=== PATIENT | male | born 1950 | race Caucasian/White ===

== ENCOUNTER 2017-04-10 09:56 | Day surgery (SDC) | payer MEDICARE, OTHER ==
[2017-04-10] MEDS ORDERED: LACTATED RINGERS 1,000 ML IV ONE (10:15)
[2017-04-10] MEDS ORDERED: fentaNYL 100 MCG/2 ML VIAL IVP ONE (10:50)
[2017-04-10] MEDS ORDERED: MIDAZOLAM 2 MG/2 ML VIAL IVP ONE (10:50)
[2017-04-10] MEDS ORDERED: BENZOCAINE/TETRACAINE/BUTAMBEN SPRAY 56 GM TOP ONE (10:59)
[2017-04-10] MEDS ORDERED: BENZOCAINE/TETRACAINE/BUTAMBEN SPRAY 56 GM ONE (11:05)
[2017-04-10 12:19] VITALS: BP 116/61
== END 2017-04-10 09:57 | disposition home or self-care (01) ==
LOC: SDS 09:56
PROVIDERS: ATTEND Surgery
PROC: 0DJD8ZZ Inspection of Lower Intestinal Tract, Via Natural or Artificial Opening Endoscopic (ICD-10-PCS; 2017-04-10)
PROC: 0DB48ZX Excision of Esophagogastric Junction, Via Natural or Artificial Opening Endoscopic, Diagnostic (ICD-10-PCS; principal; 2017-04-10 12:00)
PROC: 0DB78ZX Excision of Stomach, Pylorus, Via Natural or Artificial Opening Endoscopic, Diagnostic (ICD-10-PCS; 2017-04-10 12:00)
DX: Z12.11 Encounter for screening for malignant neoplasm of colon (principal); K44.9 Diaphragmatic hernia without obstruction or gangrene; K64.8 Other hemorrhoids; K21.9 Gastro-esophageal reflux disease without esophagitis; Z86.010 Personal history of colon polyps
CPT/HCPCS: 43239; A9270; G0105; J7120

== ENCOUNTER 2017-09-01 13:22 | Emergency (ER) | payer MEDICARE, OTHER ==
--- NOTE | 2017-09-01 14:20 | XRAY Report ---
Procedure Date: 09/01/2017 Accession Number: [id number] / [id number] Procedure: XR - Ribs 2 View RT CPT Code: FULL RESULT: EXAM: RIGHT RIB RADIOGRAPHY EXAM DATE: 09/01/2017 01:54 PM. CLINICAL HISTORY: Fall to right side. COMPARISON: None. TECHNIQUE: 2 views. FINDINGS: Bones: Mildly displaced posterior right 11th and 12th rib fractures. 12th rib fracture may be segmental. Lungs: Streaky opacities at the right lung base likely represent atelectasis. No definite pleural effusion. No pneumothorax. Left hemithorax incompletely visualized. Mediastinum: Within exam limitations, heart and cardiomediastinal contours are unremarkable. Other: None. IMPRESSION: Mildly displaced posterior right 11th and 12th rib fractures. 12th rib fracture may be segmental. RADIA
--- NOTE | 2017-09-01 15:22 | ED Physician Documentation ---
PD HPI TRUNK INJURY - Stated complaint Stated Complaint: R SIDE PX - Chief complaint Chief Complaint: General - History obtained from History obtained from: Patient - History of Present Illness Location: Posterior chest, Right chest Type of injury: Fall (slipped and fell against railing, striking right posterolateral chest, with persistent pain on breathing and moving shoulder.) Timing - onset: How many days ago (3) Timing - duration: Days (3) Timing - details: Abrupt onset, Still present Quality: Pain, Spasm, Sharp Improved by: Rest Worsened by: Moving, Palpating Associated symtptoms: No: Weakness, Numbness Contributing factors: No: Anticoagulated Similar symptoms before: Has not had sx before Recently seen: Not recently seen Review of Systems Constitutional: denies: Fever Nose: denies: Rhinorrhea / runny nose, Congestion Throat: denies: Sore throat Cardiac: reports: Chest pain / pressure. denies: Palpitations, Pedal edema, Calf pain Respiratory: denies: Dyspnea, Cough, Wheezing GI: denies: Abdominal Pain, Nausea, Vomiting PD PAST MEDICAL HISTORY - Past Medical History Past Medical History: Yes Cardiovascular: High cholesterol Endocrine/Autoimmune: HyPOthyroidism GI: GERD : None HEENT: None Psych: None Musculoskeletal: None Derm: None - Past Surgical History Past Surgical History: Yes General: Appendectomy, Colonoscopy, EGD - Present Medications Home Medications: Ambulatory Orders Medication Instructions Recorded Confirmed Levothyroxine Sodium 150 mcg PO 04/10/17 Omeprazole [PriLOSEC] 20 mg PO DAILY 04/10/17 04/10/17 - Allergies Allergies/Adverse Reactions: Allergies Allergy/AdvReac Type Severity Reaction Status Date / Time No Known Drug Allergies Allergy Verified 09/01/17 13:31 - Social History Does the pt smoke?: No Smoking Status: Never smoker Does the pt drink ETOH?: Yes Does the pt have substance abuse?: Yes - Immunizations Immunizations are current?: Yes Immunizations: TDAP current <10years PD ED PE NORMAL - Vitals Vital signs reviewed: Yes - General General: Alert and oriented X 3, No acute distress, Well developed/nourished - Neck Neck: No bony TTP - Cardiac Cardiac: RRR, No murmur - Respiratory Respiratory: Clear bilaterally, Other (right posterolateral chest with tenderness at lower ribs. No creiptance. ) - Abdomen Abdomen: Normal bowel sounds, Soft, Non tender, Non distended - Derm Derm: Normal color, Warm and dry Results - Vitals Vitals: Oxygen O2 Source Room air - Rads (name of study) chest xray Radiology: Prelim report reviewed (2 ribs fractured posterolateral right side. no lung injury.) PD MEDICAL DECISION MAKING - ED course Complexity details: reviewed results (2 rib fractures seen. no lung injury.), considered differential, d/w patient - Sepsis Event Vital Signs: Oxygen O2 Source Room air Departure - Departure Disposition: 01 Home, Self Care Clinical Impression: Accidental fall Qualifiers: Encounter type: initial encounter Qualified Code(s): W19.XXXA - Unspecified fall, initial encounter Rib fractures Qualifiers: Encounter type: initial encounter Rib fracture type: multiple ribs Fracture type: closed Laterality: right Qualified Code(s): S22.41XA - Multiple fractures of ribs, right side, initial encounter for closed fracture Condition: Stable Record reviewed to determine appropriate education?: Yes Instructions: ED Fx Rib Follow-Up: DA RAMIREZ MD [Primary Care Provider] - Comments: There are 2 broken ribs on x-ray. There is no apparent injury to the lung. Do purposeful deep breathing and regular activity as tolerated. Continue the ibuprofen 3 times a day. Add a mild stool softener such as senna or docusate. Drink lots of fluids. Add Tylenol if needed for pain. Progress activity as able. Typically this will be about a 4-6 week healing process. Follow-up with your primary care. Discharge Date/Time: 09/01/17 15:57
[2017-09-01 15:58] VITALS: BP 153/88
== END 2017-09-01 15:57 | disposition home or self-care (01) ==
LOC: ED 13:22
DX: S22.41XA Multiple fractures of ribs, right side, initial encounter for closed fracture (principal); W01.198A Fall on same level from slipping, tripping and stumbling with subsequent striking against other object, initial encounter; E78.00 Pure hypercholesterolemia, unspecified; E03.9 Hypothyroidism, unspecified; K21.9 Gastro-esophageal reflux disease without esophagitis
CPT/HCPCS: 99283